=== PATIENT | female | born 1990 | race African-American/Black ===

== ENCOUNTER 2017-02-14 10:54 | Emergency (ER) | payer MEDICAID ==
[~2017-02-14] VITALS: Ht 170.2 cm; Wt 77.2 kg
[~2017-02-14 10:54] MED LIST: NITR100C56 PO; PREN1TAB62 PO
[2017-02-14 11:03] VITALS: BP 114/75
== END 2017-02-14 12:52 | disposition home or self-care (01) ==
LOC: ED 12:08
DX: M25.561 Pain in right knee (principal); X50.1XXA Overexertion from prolonged static or awkward postures, initial encounter; Y93.89 Activity, other specified; Y99.8 Other external cause status; Y92.488 Other paved roadways as the place of occurrence of the external cause
CPT/HCPCS: 99284

== ENCOUNTER 2017-05-11 12:32 | Emergency (ER) | payer MEDICAID ==
[~2017-05-11] VITALS: Ht 168.9 cm; Wt 78.2 kg
[2017-05-11 12:52] VITALS: BP 106/70
[2017-05-11 13:52] LABS: RAPID INFLUENZA A Negative (Negative); RAPID INFLUENZA B Negative (Negative)
== END 2017-05-11 15:15 | disposition home or self-care (01) ==
LOC: ED 14:02
DX: B34.9 Viral infection, unspecified (principal)
CPT/HCPCS: 71046; 87081; 87400; 87880

== ENCOUNTER 2017-09-10 19:37 | Emergency (ER) | payer MEDICAID ==
[~2017-09-10] VITALS: Ht 170.2 cm; Wt 76.5 kg
[2017-09-10] MEDS ORDERED: DIAZEPAM 5 MG TABLET ONE (20:10)
[2017-09-10] MEDS ORDERED: KETOROLAC 30 MG/1 ML ONE (20:10)
[2017-09-10] MEDS ORDERED: DIAZEPAM 5 MG TABLET PO ONE (20:30)
[2017-09-10] MEDS ORDERED: KETOROLAC 30 MG/1 ML IM ONE (20:30)
[2017-09-10 21:44] VITALS: BP 132/60
== END 2017-09-10 21:46 | disposition home or self-care (01) ==
LOC: ED 21:20
DX: M62.838 Other muscle spasm (principal); V89.0XXA Person injured in unspecified motor-vehicle accident, nontraffic, initial encounter; Y93.89 Activity, other specified; Y92.410 Unspecified street and highway as the place of occurrence of the external cause; Y99.8 Other external cause status
CPT/HCPCS: 96372; 99283; J1885

== ENCOUNTER 2017-10-16 18:28 | Emergency (ER) | payer MEDICAID ==
[~2017-10-16] VITALS: Ht 200.7 cm; Wt 76.4 kg
[2017-10-16 18:51] VITALS: BP 130/84
[2017-10-16] MEDS ORDERED: FAMOTIDINE 20 MG TABLET PO ONE (19:00)
[2017-10-16] MEDS ORDERED: FAMOTIDINE 20 MG TABLET ONE (19:07)
== END 2017-10-16 20:00 | disposition home or self-care (01) ==
LOC: ED 19:54
DX: L50.1 Idiopathic urticaria (principal); L25.9 Unspecified contact dermatitis, unspecified cause
CPT/HCPCS: 99284; J7512; Q0177

== ENCOUNTER 2018-03-16 19:27 | Emergency (ER) | payer MEDICAID ==
[~2018-03-16] VITALS: Ht 167.6 cm; Wt 76.5 kg
[2018-03-16 20:04] LABS: BASOPHILS # (AUTO) 0.03 x10^3/uL (0-0.1); BASOPHILS % (AUTO) 1 % (0-1); EOSINOPHILS # (AUTO) 0.06 x10^3/uL (0-0.4); EOSINOPHILS % (AUTO) 1 % (1-7); LYMPHOCYTES # (AUTO) 2.81 x10^3/uL (1-3.4); LYMPHOCYTES % (AUTO) 53 % (22-44); MD NO; MEAN CORPUSCULAR HEMOGLOBIN 32.4 pg (27.0-34.8); MEAN CORPUSCULAR HGB CONC 33.7 g/dL (32.4-35.8); MEAN CORPUSCULAR VOLUME 95.9 fL (80-100); MEAN PLATELET VOLUME 8.7 fL (7.4-10.4); MONOCYTES # (AUTO) 0.33 x10^3/uL (0.2-0.8); MONOCYTES % (AUTO) 6 % (2-9); NEUTROPHILS # (AUTO) 2.08 x10^3/uL (1.8-6.8); NEUTROPHILS % (AUTO) 39 % (42-75); PLATELET COUNT 191 x10^3/uL (130-400); RED BLOOD COUNT 3.77 x10^6/uL (3.82-5.3); RED CELL DISTRIBUTION WIDTH 13.6 % (9.6-15.2)
[2018-03-16 20:14] LABS: MICROSCOPIC INDICATED
[2018-03-16 20:17] LABS: ALANINE AMINOTRANSFERASE 58 U/L (12-78); ALBUMIN 3.6 g/dL (3.4-5.0); ANION GAP 7 mmol/L (5-15); CALCIUM 7.9 mg/dL (8.5-10.1); CHLORIDE 105 mmol/L (98-107)
[2018-03-16 20:34] LABS: ALKALINE PHOSPHATASE 42 U/L (45-117); BILIRUBIN,TOTAL 0.7 mg/dL (0.2-1.0); CREATININE 0.73 mg/dL (0.55-1.02); TOTAL PROTEIN 6.7 g/dL (6.4-8.2)
[2018-03-16 20:40] LABS: CULTURE INDICATED? NO
[2018-03-16 21:36] VITALS: BP 111/62
== END 2018-03-16 21:37 | disposition home or self-care (01) ==
LOC: ED 20:00
DX: O26.891 Other specified pregnancy related conditions, first trimester (principal); R10.30 Lower abdominal pain, unspecified; R11.0 Nausea; Z3A.01 Less than 8 weeks gestation of pregnancy
CPT/HCPCS: 36415; 76801; 80053; 81001; 84702; 85025; 99285

== ENCOUNTER 2018-05-01 23:09 | Emergency (ER) | payer MEDICAID ==
[~2018-05-01] VITALS: Ht 167.6 cm; Wt 71.0 kg
[2018-05-01] MEDS ORDERED: PREN1TAB98 PO (23:13)
--- NOTE | 2018-05-01 23:15 | NUR ---
PT BIB [facility] WITH C/O N/V X 1 DAY. PT STATES SHE IS 13 WEEKS WITH HER 4TH CHILD, AND WANTED TO BE CHECKED OUT TO MAKE SURE THAT EVERYTHING WAS OKAY WITH THE BABY. EN ROUTE TO [facility], IV ACCESS WAS ESTABLISHED. PT WAS MEDICATED WITH 4 MG ODT ZOFRAN AND 300 IV FLUIDS. VSS EN ROUTE. FSBS 78. PT MEDICATION LIST OBTAINED. PT CHANGED INTO GOWN AND IS IN RPOMPEYS PILLAR. AWAITING ERP AT THIS TIME. CALL LIGHT IS WITHIN REACH. PT ATTACHED TO VS MACHINES FOR MONITORING.
--- NOTE | 2018-05-01 23:18 | NUR ---
, CHILDREN AT HOME HAVE BEEN ILL, TWO WITH COLD SYMPTOMS, ONE HAS STREP. PT NOTES ONSET N/V EARLIER TODAY WITH FEVERS, GIVEN ZOFRAN EN ROUTE, LAST TYLENOL 11AM, JAZ CHILDS TO BEDSIDE. FLU SWAB OBTAINED AND SENT TO LAB, FLUIDS INFUSING.
[2018-05-01] MEDS ORDERED: ACETAMINOPHEN 325 MG TABLET ONE (23:21)
[2018-05-01] MEDS ORDERED: ACETAMINOPHEN 500 MG TABLET PO ONE (23:30)
--- NOTE | 2018-05-01 23:35 | NUR ---
G4 P 2 A1, HOWEVER BETWEEN SHE AND HER HAVE 7 CHILDREN.
--- NOTE | 2018-05-01 23:36 | NUR ---
PT AWARE OF NEED FOR URINE SPECIMEN, STATES THAT SHE DOES NOT HAVE TO GO AT THIS TIME, WILL RECHECK SOON, GIVEN TYLENOL AND IS THUS FAR ABLE TO KEEP DOWN.
[2018-05-01 23:43] LABS: RAPID INFLUENZA A Negative (Negative); RAPID INFLUENZA B Negative (Negative)
[2018-05-01 23:58] LABS: BASOPHILS # (AUTO) 0.01 x10^3/uL (0-0.1); BASOPHILS % (AUTO) 0 % (0-1); EOSINOPHILS # (AUTO) 0.02 x10^3/uL (0-0.4); EOSINOPHILS % (AUTO) 0 % (1-7); LYMPHOCYTES # (AUTO) 0.41 x10^3/uL (1-3.4); LYMPHOCYTES % (AUTO) 10 % (22-44); MD NO; MEAN CORPUSCULAR HEMOGLOBIN 32.2 pg (27.0-34.8); MEAN CORPUSCULAR HGB CONC 34.4 g/dL (32.4-35.8); MEAN CORPUSCULAR VOLUME 93.5 fL (80-100); MEAN PLATELET VOLUME 8.4 fL (7.4-10.4); MONOCYTES # (AUTO) 0.26 x10^3/uL (0.2-0.8); MONOCYTES % (AUTO) 6 % (2-9); NEUTROPHILS # (AUTO) 3.58 x10^3/uL (1.8-6.8); NEUTROPHILS % (AUTO) 84 % (42-75); PLATELET COUNT 144 x10^3/uL (130-400); RED BLOOD COUNT 3.52 x10^6/uL (3.82-5.3); RED CELL DISTRIBUTION WIDTH 12.8 % (9.6-15.2)
[2018-05-02 00:04] LABS: ALANINE AMINOTRANSFERASE 34 U/L (12-78); ALBUMIN 3.4 g/dL (3.4-5.0); ANION GAP 7 mmol/L (5-15); CALCIUM 7.6 mg/dL (8.5-10.1); CHLORIDE 107 mmol/L (98-107); CREATININE 0.66 mg/dL (0.55-1.02)
--- NOTE | 2018-05-02 00:04 | NUR ---
PT WALKS TO BATHROOM AND URINE SPECIMEN COLLECTED AND SENT, PT REPORTS FEELING SLIGHTLY BETTER, HEADACHE RESOLVED HOWEVER LOWER BACK PAIN CONTINUES.
[2018-05-02 00:20] LABS: ALKALINE PHOSPHATASE 37 U/L (45-117); BILIRUBIN,TOTAL 0.5 mg/dL (0.2-1.0); TOTAL PROTEIN 6.5 g/dL (6.4-8.2)
[2018-05-02 00:23] LABS: MICROSCOPIC INDICATED
--- NOTE | 2018-05-02 00:23 | NUR ---
PT TO US VIA NAD. HEATH
--- NOTE | 2018-05-02 00:30 | NUR ---
PT RETURN FROM US AT THIS TIME.
[2018-05-02 00:35] LABS: CULTURE INDICATED? NO
[2018-05-02 00:41] VITALS: BP 132/82
--- NOTE | 2018-05-02 01:06 | NUR ---
REPORT FROM DONAVON MARTINEZ. PT RESTING WITH NO NEEDS AT THIS TIME. CALL LIGHT IN REACH
--- NOTE | 2018-05-02 01:20 | NUR ---
Patient given discharge instructions and they have confirmed that they understand the instructions. Patient ambulatory with steady gait.
== END 2018-05-02 01:23 | disposition home or self-care (01) ==
LOC: ED 23:40
DX: O26.891 Other specified pregnancy related conditions, first trimester (principal); Z3A.13 13 weeks gestation of pregnancy; B34.9 Viral infection, unspecified; R10.84 Generalized abdominal pain; R50.9 Fever, unspecified; R11.2 Nausea with vomiting, unspecified
CPT/HCPCS: 36415; 76801; 80053; 81001; 84702; 85025; 87400; 99284

== ENCOUNTER 2018-05-03 14:20 | Emergency (ER) | payer MEDICAID ==
[~2018-05-03] VITALS: Ht 167.6 cm; Wt 73.0 kg
[~2018-05-03 14:20] MED LIST changes: +PREN1TAB98 PO
[2018-05-03 14:47] VITALS: BP 111/71
--- NOTE | 2018-05-03 15:07 | NUR ---
PT PRESENTED TO ED WITH ABD PAIN AND CRAMPING THAT RADIATES TO HER BACK. PT WITH NAUSEA. PT WAS SEEN HERE ON THURSDAY FOR THE SAME. PT CRYING . PT PLACED IN ROOM AND PLACED ON BP AND CONT. PULSE OXIMETER. ASSESSMENT COMPLETD. JAZ HAS SEEN PT AND ORDERS RECEIVED.
[2018-05-03 15:11] LABS: BASOPHILS # (AUTO) 0.01 x10^3/uL (0-0.1); BASOPHILS % (AUTO) 0 % (0-1); EOSINOPHILS % (AUTO) 0 % (1-7); LYMPHOCYTES # (AUTO) 0.51 x10^3/uL (1-3.4); LYMPHOCYTES % (AUTO) 14 % (22-44); MD NO; MEAN CORPUSCULAR HEMOGLOBIN 31.1 pg (27.0-34.8); MEAN CORPUSCULAR HGB CONC 33.4 g/dL (32.4-35.8); MEAN CORPUSCULAR VOLUME 93.2 fL (80-100); MEAN PLATELET VOLUME 8.6 fL (7.4-10.4); MONOCYTES # (AUTO) 0.27 x10^3/uL (0.2-0.8); MONOCYTES % (AUTO) 7 % (2-9); NEUTROPHILS # (AUTO) 2.97 x10^3/uL (1.8-6.8); NEUTROPHILS % (AUTO) 79 % (42-75); PLATELET COUNT 131 x10^3/uL (130-400); RED BLOOD COUNT 3.78 x10^6/uL (3.82-5.3); RED CELL DISTRIBUTION WIDTH 13.1 % (9.6-15.2)
[2018-05-03 15:17] LABS: ALANINE AMINOTRANSFERASE 36 U/L (12-78); ALBUMIN 3.4 g/dL (3.4-5.0); ANION GAP 11 mmol/L (5-15); CALCIUM 8.1 mg/dL (8.5-10.1); CHLORIDE 104 mmol/L (98-107)
[2018-05-03] MEDS ORDERED: SODIUM CHLORIDE FLUSH 10ML SYR IVF ONE (15:30)
[2018-05-03] MEDS ORDERED: ONDANSETRON 2MG/ML, 2ML IVPush ONE (15:30)
[2018-05-03] MEDS ORDERED: MORPHINE SULFATE 4 MG/ML, 1ML IVPush PRN (15:30)
[2018-05-03 15:34] LABS: ALKALINE PHOSPHATASE 41 U/L (45-117); BILIRUBIN,TOTAL 0.5 mg/dL (0.2-1.0); TOTAL PROTEIN 7.1 g/dL (6.4-8.2)
--- NOTE | 2018-05-03 15:50 | NUR ---
PAIN MED - US DELAY
[2018-05-03] MEDS ORDERED: ONDANSETRON 2MG/ML, 2ML ONE (15:51)
[2018-05-03] MEDS ORDERED: MORPHINE SULFATE 4 MG/ML, 1ML ONE (15:52)
--- NOTE | 2018-05-03 16:32 | NUR ---
PT TAKEN TO US.
--- NOTE | 2018-05-03 17:24 | NUR ---
PT UP TO BR AND CLEAN CATCH URINE COLLECTED.
[2018-05-03 17:34] LABS: MICROSCOPIC INDICATED
[2018-05-03 17:45] LABS: CULTURE INDICATED? YES
== END 2018-05-03 18:11 | disposition home or self-care (01) ==
LOC: ED 16:17
DX: O26.891 Other specified pregnancy related conditions, first trimester (principal); M54.5 Low back pain; Z3A.13 13 weeks gestation of pregnancy
CPT/HCPCS: 36415; 76801; 80053; 81001; 84702; 85025; 87086; 96374; 96375; 99284; J2405

== ENCOUNTER 2018-05-08 14:25 | Inpatient (IN) | payer MEDICAID ==
[~2018-05-08] VITALS: Ht 168.9 cm; Wt 75.8 kg
--- NOTE | 2018-05-08 14:45 | NUR ---
PT PRESENTS TO ED WITH N/V X1WEEK. PT 14 WEEKS . UNABLE TO KEEP ANYTHIGN DOWN AND GENERALLY WEAK. CONNECTED TO BP CUFFAND PULS OX. [place]. AT BEDSIDE FOR ASSESSMENT. AWAITING ORDERS.
[2018-05-08] MEDS ORDERED: FAMOTIDINE 20 MG/2 ML IVP ONE (15:00)
[2018-05-08] MEDS ORDERED: ONDANSETRON 2MG/ML, 2ML IVPush ONE (15:00)
[2018-05-08] MEDS ORDERED: SODIUM CHLORIDE 0.9% 1,000ML IVBOLUS ONE ×2 (15:00→17:00)
[2018-05-08] MEDS ORDERED: SODIUM CHLORIDE FLUSH 10ML SYR IVF ONE (15:00)
[2018-05-08] MEDS ORDERED: ONDANSETRON 2MG/ML, 2ML ONE (15:02)
[2018-05-08] MEDS ORDERED: FAMOTIDINE 20 MG/2 ML ONE (15:02)
--- NOTE | 2018-05-08 15:06 | NUR ---
PT TO IMAGING
--- NOTE | 2018-05-08 15:20 | NUR ---
PT BACK FROM IMAGING. RESTING IN BED WITH FAMILY AT BEDSIDE. MEDICATED PER JUL. VSS.
[2018-05-08 15:25] LABS: ALANINE AMINOTRANSFERASE 71 U/L (12-78); ALBUMIN 3.1 g/dL (3.4-5.0); ANION GAP 7 mmol/L (5-15); CALCIUM 8.3 mg/dL (8.5-10.1); CHLORIDE 105 mmol/L (98-107); CREATININE 0.65 mg/dL (0.55-1.02)
[2018-05-08 15:26] LABS: BASOPHILS # (AUTO) 0.03 x10^3/uL (0-0.1); BASOPHILS % (AUTO) 0 % (0-1); EOSINOPHILS % (AUTO) 0 % (1-7); LYMPHOCYTES # (AUTO) 1.23 x10^3/uL (1-3.4); LYMPHOCYTES % (AUTO) 15 % (22-44); MD NO; MEAN CORPUSCULAR HEMOGLOBIN 30.9 pg (27.0-34.8); MEAN CORPUSCULAR HGB CONC 33.4 g/dL (32.4-35.8); MEAN CORPUSCULAR VOLUME 92.7 fL (80-100); MEAN PLATELET VOLUME 8.5 fL (7.4-10.4); MONOCYTES # (AUTO) 0.43 x10^3/uL (0.2-0.8); MONOCYTES % (AUTO) 5 % (2-9); NEUTROPHILS # (AUTO) 6.64 x10^3/uL (1.8-6.8); NEUTROPHILS % (AUTO) 80 % (42-75); PLATELET COUNT 173 x10^3/uL (130-400); RED BLOOD COUNT 3.64 x10^6/uL (3.82-5.3); RED CELL DISTRIBUTION WIDTH 12.9 % (9.6-15.2)
[2018-05-08 15:27] LABS: ALKALINE PHOSPHATASE 70 U/L (45-117); BILIRUBIN,TOTAL 0.8 mg/dL (0.2-1.0); TOTAL PROTEIN 6.8 g/dL (6.4-8.2)
[2018-05-08 16:00] LABS: CULTURE INDICATED? YES; MICROSCOPIC INDICATED
--- NOTE | 2018-05-08 16:31 | NUR ---
PA REQUESTING REPEAT URINE SAMPLE. PT UNABLE TO VOID AT THIS TIME. ORDERS RECEIVED FOR 1L FLUIDS.
[2018-05-08] MEDS ORDERED: PROMETHAZINE 25 MG/ML, 1ML ONE (17:37)
--- NOTE | 2018-05-08 17:45 | NUR ---
PT MEDICATED PER MAR FOR NAUSEA AND PAIN. VSS. PILLOW PROVIDED FOR COMFORT. AWAITING RESULTS FROM SECOND UA SAMPLE AT THIS TIME AND RECHECK. ALL NEEDS MET. CALL LIGHT WITHIN REACH.
[2018-05-08 17:59] LABS: CULTURE INDICATED? YES; MICROSCOPIC INDICATED
[2018-05-08] MEDS ORDERED: PROMETHAZINE 25 MG/ML, 1ML IM ONE (18:00)
--- NOTE | 2018-05-08 18:12 | NUR ---
RESULTS BACK AT THIS TIME, CHART UP FOR RECHECK
--- NOTE | 2018-05-08 18:16 | NUR ---
PO CHALLENGE INITIATED, PT GIVEN WATER PER REQUEST, INSTRUCTED TO TAKE SMALL SIPS. PT STATES UNDERSTANDING
--- NOTE | 2018-05-08 18:49 | NUR ---
PA TO BEDSIDE FOR RECHECK, PT TO BE ADMITTED TO [facility].
[2018-05-08] MEDS ORDERED: ONDANSETRON 2MG/ML, 2ML IVPush PRN (20:00)
[2018-05-08] MEDS ORDERED: POTASSIUM CHLORIDE 40 MEQ in SODIUM CHLORIDE 0.9% 500 ML IV ONE (20:00)
[2018-05-08] MEDS ORDERED: ACETAMINOPHEN 325 MG TABLET PO PRN (20:00)
[2018-05-08] MEDS ORDERED: PROMETHAZINE 25 MG/ML, 1ML IM PRN (20:00)
[2018-05-08 21:00] VITALS: BP 105/68
[2018-05-08] MEDS: D5%-LACTATED RINGERS 1,000 ML IV SCH (22:00)
[2018-05-08 23:19] LABS: RAPID INFLUENZA A Negative (Negative); RAPID INFLUENZA B Negative (Negative)
[2018-05-09 01:28] VITALS: BP 98/57
[2018-05-09 05:43] LABS: BASOPHILS # (AUTO) 0.02 x10^3/uL (0-0.1); BASOPHILS % (AUTO) 0 % (0-1); EOSINOPHILS # (AUTO) 0.02 x10^3/uL (0-0.4); EOSINOPHILS % (AUTO) 0 % (1-7); LYMPHOCYTES # (AUTO) 2.12 x10^3/uL (1-3.4); LYMPHOCYTES % (AUTO) 27 % (22-44); MD NO; MEAN CORPUSCULAR HEMOGLOBIN 32.3 pg (27.0-34.8); MEAN CORPUSCULAR HGB CONC 34.4 g/dL (32.4-35.8); MEAN CORPUSCULAR VOLUME 93.8 fL (80-100); MEAN PLATELET VOLUME 8.8 fL (7.4-10.4); MONOCYTES # (AUTO) 0.52 x10^3/uL (0.2-0.8); MONOCYTES % (AUTO) 7 % (2-9); NEUTROPHILS # (AUTO) 5.23 x10^3/uL (1.8-6.8); NEUTROPHILS % (AUTO) 66 % (42-75); PLATELET COUNT 155 x10^3/uL (130-400); RED BLOOD COUNT 3.24 x10^6/uL (3.82-5.3); RED CELL DISTRIBUTION WIDTH 12.9 % (9.6-15.2)
[2018-05-09 05:59] LABS: ANION GAP 8 mmol/L (5-15); CALCIUM 7.5 mg/dL (8.5-10.1); CHLORIDE 109 mmol/L (98-107)
[2018-05-09 06:00] LABS: CREATININE 0.42 mg/dL (0.55-1.02)
[2018-05-09] MEDS ORDERED: POTASSIUM CHLORIDE 20 MEQ TAB.ER.PRT PO ONE (07:00)
[2018-05-09 07:34] VITALS: BP 103/69
[2018-05-09] MEDS: D5%-LACTATED RINGERS 1,000 ML IV SCH (09:00)
[2018-05-09] MEDS ORDERED: PRENATAL VIT/IRON/FA 1 EACH TABLET PO SCH (09:00)
[2018-05-09] MEDS ORDERED: PYRIDOXINE 25MG TABLET PO SCH (12:00)
[2018-05-09] MEDS ORDERED: DOXYLAMINE 25MG TABLET PO ONE (12:00)
[2018-05-09 12:36] VITALS: BP 95/64
[2018-05-09] MEDS ORDERED: DOXY1TAB3 PO (14:37)
[2018-05-09] MEDS ORDERED: ONDA4TAB7 PO (14:37)
== END 2018-05-09 16:41 | disposition home or self-care (01) | DRG 833 ==
LOC: ED 15:22 → EDIP 18:58 → INTOOBSV 18:58 → OBSVTOIN 18:58 → 3NE 19:26
PROVIDERS: ADMIT Family Medicine; ATTEND Family Medicine
DX: O21.9 Vomiting of pregnancy, unspecified (principal); O99.012 Anemia complicating pregnancy, second trimester; Z3A.14 14 weeks gestation of pregnancy; E87.6 Hypokalemia; O99.282 Endocrine, nutritional and metabolic diseases complicating pregnancy, second trimester; E86.0 Dehydration; D64.9 Anemia, unspecified; Z91.018 Allergy to other foods
CPT/HCPCS: 36415; 87400; 99285; J3490; J7121; 71046; 80048; 80053; 81001; 83690; 85025; 87086; 96361; 96372; 96374; 96375; J2405; J2550; J3480; G0378; J7030; J7040

== ENCOUNTER 2018-06-23 21:40 | Outpatient (CLI) | payer MEDICAID ==
[~2018-06-23] VITALS: Ht 168.9 cm; Wt 77.1 kg
[~2018-06-23 21:40] MED LIST changes: +DOXY1TAB3 PO; +ONDA4TAB7 PO
[2018-06-23 21:50] VITALS: BP 116/61
[2018-06-23 22:22] LABS: MICROSCOPIC NOT IND
[2018-06-23 22:40] LABS: AMPHETAMINE SCREEN, URINE Negative (Negative); BARBITURATE SCREEN, URINE Negative (Negative); BENZODIAZEPINE SCREEN, URINE Negative (Negative); CANNABINOID SCREEN, URINE Positive (Negative); COCAINE SCREEN, URINE Negative (Negative); METHADONE SCREEN, URINE Negative (Negative); OPIATE SCREEN, URINE Negative (Negative)
== END 2018-06-23 22:25 | disposition home or self-care (01) ==
LOC: LDOP 21:40
PROVIDERS: ATTEND Obstetrics & Gynecology
DX: O26.893 Other specified pregnancy related conditions, third trimester (principal); R10.9 Unspecified abdominal pain; Z3A.20 20 weeks gestation of pregnancy
CPT/HCPCS: 59025; 80307; 81003; 87086; 99201; G0463

== ENCOUNTER 2018-06-23 22:31 | Emergency (ER) | payer MEDICAID ==
[~2018-06-23] VITALS: Ht 167.6 cm; Wt 79.9 kg
--- NOTE | 2018-06-23 23:01 | NUR ---
PT TO ROOM PLACED IN GOWN GIVEN A WARM BLANKET AND AWAITING ERP AND ORDERS.
--- NOTE | 2018-06-24 00:17 | NUR ---
PT D/C WITH D/C SUMMARY. ALL QUESTIONS ANSWERED. PT AMBULATED TO REGISTRATION DESK WITH STEADY GAIT FOR D/C HOME WITH . PT DENIES ANY OTHER NEEDS PERTAINING TO THIS VISIT. VSS UPON D/C.
[2018-06-24 00:19] VITALS: BP 144/89
== END 2018-06-24 00:21 | disposition home or self-care (01) ==
LOC: ED 23:31
DX: O26.892 Other specified pregnancy related conditions, second trimester (principal); R07.89 Other chest pain; R05 Cough; Z3A.20 20 weeks gestation of pregnancy
CPT/HCPCS: 71046; 99283

== ENCOUNTER 2018-07-12 18:36 | Emergency (ER) | payer MEDICAID ==
[~2018-07-12] VITALS: Ht 167.6 cm; Wt 83.3 kg
[2018-07-12 19:03] LABS: BASOPHILS # (AUTO) 0.04 x10^3/uL (0-0.1); BASOPHILS % (AUTO) 1 % (0-1); EOSINOPHILS # (AUTO) 0.04 x10^3/uL (0-0.4); EOSINOPHILS % (AUTO) 1 % (1-7); LYMPHOCYTES # (AUTO) 2.36 x10^3/uL (1-3.4); LYMPHOCYTES % (AUTO) 37 % (22-44); MD NO; MEAN CORPUSCULAR HEMOGLOBIN 32.4 pg (27.0-34.8); MEAN CORPUSCULAR HGB CONC 34.1 g/dL (32.4-35.8); MEAN CORPUSCULAR VOLUME 95.2 fL (80-100); MEAN PLATELET VOLUME 8.6 fL (7.4-10.4); MONOCYTES # (AUTO) 0.38 x10^3/uL (0.2-0.8); MONOCYTES % (AUTO) 6 % (2-9); NEUTROPHILS # (AUTO) 3.62 x10^3/uL (1.8-6.8); NEUTROPHILS % (AUTO) 56 % (42-75); PLATELET COUNT 174 x10^3/uL (130-400); RED BLOOD COUNT 3.53 x10^6/uL (3.82-5.3); RED CELL DISTRIBUTION WIDTH 14.5 % (9.6-15.2)
[2018-07-12 19:13] LABS: ALANINE AMINOTRANSFERASE 14 U/L (12-78); ALBUMIN 3.2 g/dL (3.4-5.0); ANION GAP 3 mmol/L (5-15); CALCIUM 8.2 mg/dL (8.5-10.1); CHLORIDE 107 mmol/L (98-107); CREATININE 0.54 mg/dL (0.55-1.02)
[2018-07-12 19:15] LABS: ALKALINE PHOSPHATASE 39 U/L (45-117); BILIRUBIN,TOTAL 0.2 mg/dL (0.2-1.0); TOTAL PROTEIN 7.1 g/dL (6.4-8.2)
[2018-07-12 20:26] LABS: MICROSCOPIC NOT IND
[2018-07-12 20:37] LABS: CULTURE INDICATED? NO
--- NOTE | 2018-07-12 20:49 | NUR ---
PT TO ROOM FROM LOBBY
[2018-07-12 21:00] VITALS: BP 115/74
--- NOTE | 2018-07-12 21:46 | NUR ---
Patient given discharge instructions and they have confirmed that they understand the instructions. Patient to jose and sandhya
== END 2018-07-12 21:48 | disposition home or self-care (01) ==
LOC: ED 21:21
DX: O26.892 Other specified pregnancy related conditions, second trimester (principal); Z3A.23 23 weeks gestation of pregnancy; R10.31 Right lower quadrant pain; R10.32 Left lower quadrant pain; Z87.891 Personal history of nicotine dependence
CPT/HCPCS: 36415; 76815; 80053; 81003; 85025; 93005; 99284

== ENCOUNTER 2018-07-12 21:52 | Outpatient (CLI) | payer MEDICAID ==
[2018-07-12 22:35] VITALS: BP 115/60
[2018-07-12] MEDS ORDERED: TERBUTALINE 1 MG/ML, 1ML ONE (22:52)
[2018-07-12] MEDS ORDERED: TERBUTALINE 1 MG/ML, 1ML SQ ONE (23:00)
== END 2018-07-13 00:25 | disposition home or self-care (01) ==
LOC: LDOP 21:52
PROVIDERS: ATTEND Obstetrics & Gynecology
DX: O26.893 Other specified pregnancy related conditions, third trimester (principal); R10.9 Unspecified abdominal pain; Z3A.23 23 weeks gestation of pregnancy
CPT/HCPCS: 59025; 99211; J3105; G0463

== ENCOUNTER 2019-10-05 19:30 | Emergency (ER) | payer MEDICAID ==
[~2019-10-05] VITALS: Ht 167.6 cm; Wt 74.1 kg
[2019-10-05] MEDS ORDERED: DIAZEPAM 5 MG TABLET ONE (19:52)
[2019-10-05] MEDS ORDERED: DIAZEPAM 5 MG TABLET PO ONE (20:00)
[2019-10-05 20:10] LABS: BASOPHILS # (AUTO) 0.03 x10^3/uL (0-0.1); BASOPHILS % (AUTO) 1 % (0-1); EOSINOPHILS # (AUTO) 0.02 x10^3/uL (0-0.4); EOSINOPHILS % (AUTO) 0 % (1-7); LYMPHOCYTES # (AUTO) 2.93 x10^3/uL (1-3.4); LYMPHOCYTES % (AUTO) 54 % (22-44); MD NO; MEAN CORPUSCULAR HEMOGLOBIN 32.1 pg (27.0-34.8); MEAN CORPUSCULAR HGB CONC 33.4 g/dL (32.4-35.8); MEAN CORPUSCULAR VOLUME 96.1 fL (80-100); MONOCYTES # (AUTO) 0.36 x10^3/uL (0.2-0.8); MONOCYTES % (AUTO) 7 % (2-9); NEUTROPHILS # (AUTO) 2.13 x10^3/uL (1.8-6.8); NEUTROPHILS % (AUTO) 39 % (42-75); PLATELET COUNT 217 x10^3/uL (130-400); RED BLOOD COUNT 4.31 x10^6/uL (3.82-5.3); RED CELL DISTRIBUTION WIDTH 13.3 % (9.6-15.2)
[2019-10-05 20:24] LABS: ALANINE AMINOTRANSFERASE 30 U/L (12-78); ALBUMIN 4.2 g/dL (3.4-5.0); ANION GAP 6 mmol/L (5-15); CALCIUM 8.6 mg/dL (8.5-10.1); CHLORIDE 108 mmol/L (98-107); CREATININE 0.92 mg/dL (0.55-1.02)
[2019-10-05 20:26] LABS: ALKALINE PHOSPHATASE 59 U/L (45-117); BILIRUBIN,TOTAL 1.2 mg/dL (0.2-1.0); TOTAL PROTEIN 7.9 g/dL (6.4-8.2)
[2019-10-05 20:37] LABS: HCG UR SG 1.037 (1.003-1.030)
[2019-10-05 20:51] VITALS: BP 101/66
[2019-10-05] MEDS ORDERED: POTASSIUM CHLORIDE 20 MEQ TAB.ER.PRT ONE (21:19)
[2019-10-05] MEDS ORDERED: POTASSIUM CHLORIDE 20 MEQ TAB.ER.PRT PO ONE (21:30)
== END 2019-10-05 21:38 | disposition home or self-care (01) ==
LOC: ED 19:52
DX: F41.1 Generalized anxiety disorder (principal); R06.4 Hyperventilation; E87.6 Hypokalemia; F32.9 Major depressive disorder, single episode, unspecified; R94.31 Abnormal electrocardiogram [ECG] [EKG]; Z87.891 Personal history of nicotine dependence
CPT/HCPCS: 36415; 71045; 80053; 81025; 85025; 93005; 99285